=== PATIENT | male | born 1985 | race African-American/Black ===

== ENCOUNTER 2017-05-27 01:21 | Emergency (ER) | payer BC, MEDICAID ==
[~2017-05-27] VITALS: Ht 165.1 cm; Wt 75.0 kg
[2017-05-27] MEDS ORDERED: LIDOCAINE HCL 1% 20ML VIAL (Pyxis) INJ MC ONE (02:30)
[2017-05-27] MEDS ORDERED: TETANUS, DIPHTHERIA, PERTUSSIS VAC/PF 0.5ML (>7YR OLD) IM ONE (02:30)
[2017-05-27] MEDS ORDERED: BACITRACIN ZINC OINT UDPKT TOP ONE (02:30)
[2017-05-27 06:10] VITALS: BP 130/89
== END 2017-05-27 06:18 | disposition home or self-care (01) ==
LOC: ER 01:21
DX: S41.112A Laceration without foreign body of left upper arm, initial encounter (principal); S61.412A Laceration without foreign body of left hand, initial encounter; W25.XXXA Contact with sharp glass, initial encounter; Y93.31 Activity, mountain climbing, rock climbing and wall climbing; Y92.9 Unspecified place or not applicable
CPT/HCPCS: 12004; 73060; 73130; 90471; 90715; 99284; J3490; Z7610

== ENCOUNTER 2017-06-02 13:18 | Emergency (ER) | payer MEDICAID ==
[~2017-06-02] VITALS: Ht 172.7 cm; Wt 70.0 kg
[2017-06-02 14:02] VITALS: BP 128/86
== END 2017-06-02 16:21 | disposition home or self-care (01) ==
LOC: ER 15:17
DX: Z48.02 Encounter for removal of sutures (principal)
CPT/HCPCS: 99281; Z7610